=== PATIENT | female | born 1970 ===

== ENCOUNTER 2018-02-05 13:56 | Day surgery (SDC) | payer OTHER, SELFPAY ==
[2018-02-05 15:48] VITALS: BP 120/71; PULSE 75; RESP 16; TEMP 36.9; O2SAT 97; BMI 34.4
--- NOTE | 2018-02-05 17:37 | PM.HP.1 ---
History of Present Illness Date Patient Seen: 02/05/18 Time Patient Seen: 17:20 Chief complaint: remove foreign body [id number] Narrative: The patient is a 47-year-old woman who stepped on a sewing needle with her right great toe. Initially she was unaware of the fact that the needle and entered her toe but she continued to have soreness and eventually developed an infection. This was treated with oral antibiotics. Initially there was improvement however after stopping the antibiotics the infection reoccurred and she was seen on Sunday of last week in her primary care's office where they attempted to remove the needle with a small incision. They also restarted antibiotics with Keflex. She has also had a steroid bolus to help with inflammation. She was initially referred to see the general surgeons who requested I see her instead. She notes there has been improvement in her toe with the most recent round of antibiotics. Although she has had some inflammation and swelling around the toe there has been no systemic sign of infection. Patient History Medical History Hypercholesterolemia (Acute) Anxiety (Chronic) Surgical History H/O hernia repair (Acute) H/O melanoma excision (Acute) History of cholecystectomy (Acute) H/O tubal ligation (Acute) Family & Social History Family History: Reviewed 02/05/18 by Kevyn Davison MD Social History: household members significant other Tobacco & Substance use: She denies alcohol and tobacco use having discontinued both approximately 8 years ago. She does occasionally use ?marijuana mints for insomnia. Meds Home Medications Medication Instructions Recorded Confirmed Type sertraline [Zoloft] 25 mg PO QDAY #0 04/13/16 02/05/18 History hydrocodone-acetaminophen 1 - 2 tab PO Q4HP PRN #20 07/09/16 02/05/18 Rx cephalexin 500 mg capsule 500 mg PO BID 02/05/18 02/05/18 History Allergies Allergy/AdvReac Type Severity Reaction Status Date / Time No Known Drug Allergies Allergy Verified 02/05/18 15:47 Review of Systems Review of Systems All systems reviewed & are unremarkable except as noted in HPI and below Exam Vital Signs (past 8 hours): - 02/05/18 15:48 Temperature 98.4 F Pulse Rate 75 Respiratory Rate 16 Blood Pressure 120/71 Pulse Oximetry 97 Oxygen Delivery Method Room Air Narrative Exam Narrative: HEENT examination is normocephalic atraumatic. Chest is clear to auscultation. Cardiac exam is regular rate rhythm S1-S2 normal no rubs murmurs or gallops. Abdomen is soft nontender with no masses and normal abdominal bowel sounds. Right lower extremity is notable for mild erythema on the medial aspect of the proximal phalanx of the great toe. There is a healed 1 cm incision. Light touch is intact distally. Assessment & Plan Plan: Assessment/Plan Narrative: The patient has retained foreign body in her right great toe. Unfortunately radiographs if not accompanied her but she does show me the pictures from Dr. Campbell is office on her cell phone. There is a fairly substantial portion of a sewing needle evident. We will okay this with fluoroscopy in the operating room and remove the fragment of needle. She will then continue oral antibiotics. This should be accomplished as an outpatient. She has agreed to this after discussion the risks benefits and alternatives. Alternatives discussed included leaving the foreign body and continuing to treat her with antibiotics. Risks include damage to the digital nerves, inability to prevent the infection from worsening, incomplete pain relief, incomplete functional return, deep venous thrombosis, pulmonary embolism, stroke, myocardial infarction, permanent paralysis and .
[2018-02-05] MEDS: CEFAZOLIN VIAL 1 GM in SODIUM CHLORIDE 0.9% 100 ML 200 ML IV (18:45)
[2018-02-05] MEDS: BUPIVACAINE 0.5% (PF) VIAL 30 ML INJ (19:09)
[2018-02-05 19:24] VITALS: BP 127/92; PULSE 94; RESP 18; TEMP 36.8
--- NOTE | 2018-02-05 19:25 | SUR.OPER ---
Supine on padded OR bed, head on pillow, arms secured on padded arm boards at <90 degrees abduction, legs uncrossed, safety belt at waist, tape over blanket over lower left leg, right leg drapped free.
[2018-02-05 19:28] VITALS: BP 126/77; PULSE 91; RESP 18; O2SAT 99
--- NOTE | 2018-02-05 19:33 | P.OP_ITS ---
Operative Date/Time/Diagnoses Date of procedure: 02/05/18 Time of procedure: 19:20 Pre-op diagnosis: Retained foreign body, right great toe Post-op diagnosis: same Procedure & Clinicians Procedure: Removal of deep foreign body, right great toe Same procedure as scheduled: Yes Indications: The patient has a retained foreign body. History and consent is documented in my preoperative note. Surgeon: Kevyn Davison Click Yes if Unassisted: Yes Anesthesia Type: General and Local Operative Notes Findings: Retained sewing needle with surrounding foreign body reaction and purulent fluid. Closure Type: primary Specimen(s): none sent Estimated Blood Loss (mL): 0 Blood products transfused: none Tourniquet time (min): 12 Procedure in detail: The patient was seen in the preoperative area where she identified the right great toe as the operative site and this was marked with my initials. She received preoperative antibiotics with appropriate 1st generation cephalosporin and was taken to the operating room and placed on the operating room table in a supine position. She underwent the induction of a general anesthetic. A tourniquet was placed around her calf. Her leg was prepared from the toes to the calf with ChloraPrep in the usual fashion and draped through sterile drapes. The leg was elevated and exsanguinated the tourniquet inflated to 250 mm of mercury. An approximately 1 cm incision was made in the mid lateral line between the plantar skin and the dorsal skin. The position of the incision was determined using fluoroscopy to guide us. The patient did react initially to the incision and therefore 10 mL of 0.5% plain Marcaine was injected as a digital block. The needle was readily identified and removed. Surrounding purulence was expressed as was foreign body soft tissue reaction and necrotic tissue. The wound was then copiously irrigated using a 16 gauge angiocath. The wound was then closed with 2 0 nylon. A dressing of Xeroform, gauze and a Jessie wrap was then applied. The tourniquet was deflated and the patient was transported to the recovery room in good condition having tolerated the procedure well. Complications: none Condition: stable Disposition: PACU Plan for aftercare: The patient will be discharged tonight. She lives on [facility] [facility] and it should be reasonable for her primary caregiver to remove the sutures. We would be happy to see her back in 2 weeks to do the suture removal or if any complications arise.
[2018-02-05 19:43] VITALS: BP 126/69; PULSE 84; RESP 16; TEMP 36.9; O2SAT 97
[2018-02-05] MEDS: HYDROCODONE/ACET 5/325 TABLET 1 TAB PO (19:48)
== END 2018-02-05 20:03 | disposition home or self-care (01) ==
PROVIDERS: PCP Family Medicine Geriatric Medicine; Visit Provider Orthopaedic Surgery
PROC: (CPT 10121; principal; 2018-02-05 17:30)
DX: S90.451A Superficial foreign body, right great toe, initial encounter (principal); W27.3XXA Contact with needle (sewing), initial encounter; E78.5 Hyperlipidemia, unspecified; F41.9 Anxiety disorder, unspecified
CPT/HCPCS: 10121; J0690; J1100; J2405; J2704